=== PATIENT | female | born 1955 | race Caucasian/White ===

== ENCOUNTER 2023-08-28 07:34 | Outpatient (CLI) | payer MEDICARE, BC, SELFPAY ==
--- NOTE | ~2023-08-28 | MR_ITS ---
MRI of the right knee Clinical history: Pain Technique: Coronal proton density and proton density-weighted images, sagittal proton-density and T2 fat-sat images, and axial proton-density fat-saturated images were acquired. Findings: Anterior and posterior cruciate ligaments are intact. Medial collateral ligament and the la teral collateral ligament complex are intact. Popliteus tendon is intact. Medial and lateral menisci are intact, without evidence of tear. There is mild chondral thinning along the medial patellar facet and femoral trochlea. There is mild c hondral thinning at the medial joint line. Bone marrow signals are unremarkable. Extensor mechanism is intact. No significant joint effusion. Minimal Banuelos's cyst. Impression: Mild degenerative change, as above. Minimal Banuelos's cyst. Reviewed, dictated and finalized at location . Impression: Mild degenerative change, as above. Minimal Banuelos's cyst.
== END 2023-08-28 07:35 ==
PROVIDERS: Visit Provider Physician Assistant
DX: M25.561 Pain in right knee (principal); M23.91 Unspecified internal derangement of right knee
CPT/HCPCS: 73721